=== PATIENT | male | born 1945 | race Two or more races ===

== ENCOUNTER 2021-02-19 09:02 | Inpatient (IN) | payer MEDICARE, OTHER ==
[~2021-02-19] VITALS: Ht 165.1 cm; Wt 53.5 kg
--- NOTE | 2021-02-19 09:02 | NUR ---
PT KERMIT 89 FROM [facility] C/O HEAD LAC S/P GLF. PT IS AAOX3 CYPRIOT SPEAKING ONLY, HOOKED TO MARKET RESEARCH ASSISTANT, KEPT RESTED AND COMFORTABLE. WILL CONTINUE TO MONITOR.
--- NOTE | 2021-02-19 09:21 | NUR ---
SEEN AND EXAMINED BY .
--- NOTE | 2021-02-19 09:37 | NUR ---
PT IS WHEELED TO CT SCAN VIA [facility].
--- NOTE | 2021-02-19 11:03 | NUR ---
MOVE SHEET SUBMITTED AND CALLED FOR TELE BED.
[2021-02-19 11:04] LABS: BASOPHILS # (AUTO) 0.1 K/uL (0.0-0.2); BASOPHILS % (AUTO) 1.3 % (0.0-2.0); EOSINOPHILS % (AUTO) 18.2 % (0.0-6.0); HEMATOCRIT 35 % (39-51); LYMPHOCYTES # (AUTO) 0.5 K/uL (0.8-4.8); LYMPHOCYTES % (AUTO) 8.6 % (20.0-44.0); MEAN CORPUSCULAR HGB CONC 31 g/dl (31.0-36.0); MEAN CORPUSCULAR VOLUME 90 fL (80-96); MONOCYTES # (AUTO) 0.4 K/uL (0.1-1.30); MONOCYTES % (AUTO) 8.4 % (2.0-12.0); NEUTROPHILS # (AUTO) 3.3 K/uL (1.8-8.9); NEUTROPHILS % (AUTO) 63.5 % (43.0-81.0); PLATELET COUNT (AUTO) 173 K/uL (150-450); RED BLOOD CELL COUNT(AUTO) 3.93 MIL/uL (4.5-6.0); WHITE BLOOD COUNT (AUTO) 5.3 K/uL (4.3-11.0)
[2021-02-19] MEDS ORDERED: TDAP [DIPH/PERTUSSIS/TET] 0.5 ML VIAL IM ONE ×2 (11:14→11:30)
[2021-02-19] MEDS ORDERED: HYDR-4077 PO (11:14)
[2021-02-19] MEDS ORDERED: FERR325T23 PO (11:14)
[2021-02-19] MEDS ORDERED: AMIN30LI27 PO (11:14)
[2021-02-19] MEDS ORDERED: MAGN400O6 PO (11:14)
[2021-02-19] MEDS ORDERED: BISA10SU11 RC (11:14)
[2021-02-19] MEDS ORDERED: POLY17PO4 PO (11:14)
[2021-02-19] MEDS ORDERED: ACID1TAB12 PO (11:14)
[2021-02-19] MEDS ORDERED: NUT.237L67 PO (11:14)
[2021-02-19] MEDS ORDERED: HYDR28.32 TP (11:14)
[2021-02-19] MEDS ORDERED: MIRT45TA83 PO (11:14)
[2021-02-19] MEDS ORDERED: LINA5TAB PO (11:14)
[2021-02-19] MEDS ORDERED: INSU100V11 SQ (11:14)
[2021-02-19] MEDS ORDERED: POLY15DR40 EACHEYE (11:14)
[2021-02-19] MEDS ORDERED: FOLI0.8T23 PO (11:14)
[2021-02-19 11:25] LABS: ALANINE AMINOTRANSFERASE 11 U/L (12-78); ALBUMIN 2.7 g/dL (3.4-5.0); ALKALINE PHOSPHATASE 77 U/L (46-116); ASPARTATE AMINOTRANSFERASE 12 U/L (15-37); BILIRUBIN,DIRECT 0.1 mg/dL (0.0-0.2); BILIRUBIN,TOTAL 0.2 mg/dL (0.2-1.0); CALCIUM, SERUM 8.1 mg/dL (8.5-10.1); CARBON DIOXIDE 29 mmol/L (21-32); CHLORIDE 106 mmol/L (98-107); CREATININE 4.3 mg/dL (0.6-1.3); GLUCOSE 138 mg/dL (74-106); LIPASE 120 U/L (73-393); POTASSIUM 3.7 mmol/L (3.5-5.1); SODIUM SERUM 143 mmol/L (136-145); TOTAL PROTEIN, SERUM 7.3 g/dL (6.4-8.2); UREA NITROGEN, BLOOD 54 mg/dL (7-18)
--- NOTE | 2021-02-19 11:43 | NUR ---
COVID SPECIMEN OBTAINED AND SENT TO LAB.
--- NOTE | 2021-02-19 13:03 | NUR ---
YASMINE PT DAUGHTER.
[2021-02-19] MEDS ORDERED: ACETAMINOPHEN 325 MG TABLET PO PRN (14:00)
[2021-02-19] MEDS ORDERED: ONDANSETRON HCL/PF 4 MG/2 ML VIAL IVP PRN (14:00)
--- NOTE | 2021-02-19 18:30 | NUR ---
ROOM GIVEN 116-1
--- NOTE | 2021-02-19 18:34 | NUR ---
CALLED CLAIRE FOR REPORT PER RN SOON GIVE REPORT AFTER SHIFT THEY'RE MOVING PT.
--- NOTE | 2021-02-19 19:32 | NUR ---
ATTEMPTED TO CALL REPORT, NURSE IS WITH PATIENT AT THE MOMENT, WAITING FOR NURSE TO BE AVAILABLE. WILL RECEIVE A CALLBACK.
--- NOTE | 2021-02-19 19:51 | NUR ---
ATTEMPTED TO GIVE REPORT, NURSE IS BUSY AT THE MOMENT. WILL TRY AGAIN.
[2021-02-19 20:44] VITALS: BP 153/74
[2021-02-20] VITALS: BP_SYST 133; BP_SYST 153; BP_DIAS 74; BP_DIAS 77
[2021-02-20 04:00] VITALS: BP 139/79
--- NOTE | 2021-02-20 06:35 | NUR ---
RN notes Admitted a 75 yr old male from ER for unwitness fall. Patient has a 2 samantha in frontal scalp, redness noted. NO bledding or discharge. Vital signs wnl. No distress noted. On room air, tolerating well. No complaint of pain or discomfort. Alert with a little confusion, obeys command. No significant change since admission. Kept clean and dry. Will endorse to next shift for continuity of care.
[2021-02-20 07:32] LABS: BASOPHILS % (AUTO) 0.6 % (0.0-2.0); EOSINOPHILS % (AUTO) 17.7 % (0.0-6.0); HEMATOCRIT 32 % (39-51); HEMOGLOBIN 10.2 g/dL (13.5-17.5); LYMPHOCYTES # (AUTO) 0.8 K/uL (0.8-4.8); LYMPHOCYTES % (AUTO) 12.9 % (20.0-44.0); MEAN CORPUSCULAR HGB CONC 32 g/dl (31.0-36.0); MEAN CORPUSCULAR VOLUME 90 fL (80-96); MONOCYTES # (AUTO) 0.6 K/uL (0.1-1.30); MONOCYTES % (AUTO) 9.5 % (2.0-12.0); NEUTROPHILS # (AUTO) 3.5 K/uL (1.8-8.9); NEUTROPHILS % (AUTO) 59.3 % (43.0-81.0); PLATELET COUNT (AUTO) 172 K/uL (150-450); RED BLOOD CELL COUNT(AUTO) 3.58 MIL/uL (4.5-6.0); WHITE BLOOD COUNT (AUTO) 5.9 K/uL (4.3-11.0)
[2021-02-20 07:44] LABS: CARBON DIOXIDE 28 mmol/L (21-32); CHLORIDE 108 mmol/L (98-107); CREATININE 4.3 mg/dL (0.6-1.3); GLUCOSE 92 mg/dL (74-106); MAGNESIUM 2.9 mg/dL (1.8-2.4); PHOSPHORUS 5.1 mg/dL (2.5-4.9); POTASSIUM 3.7 mmol/L (3.5-5.1); SODIUM SERUM 143 mmol/L (136-145); UREA NITROGEN, BLOOD 63 mg/dL (7-18)
[2021-02-20 07:52] LABS: CALCIUM, SERUM 8.2 mg/dL (8.5-10.1)
[2021-02-20 07:55] LABS: CHOLESTEROL 135 mg/dL (<200); HDL CHOLESTEROL 33 mg/dL (40-60); LDL 82 mg/dL (0-99); TRIGLYCERIDES 103 mg/dL (30-150)
[2021-02-20 08:00] VITALS: BP 138/68
--- NOTE | 2021-02-20 10:01 | NUR ---
VSS, pt calm and cooperative, no s/s distress. HD nurse at bedside and pt undergoing dialysis per physician orders.
[2021-02-20 12:00] VITALS: BP 91/56
[2021-02-20 16:00] VITALS: BP 123/59
--- NOTE | 2021-02-20 19:30 | NUR ---
RN NOTE RECEIVED PATIENT IN BED. A/OX 1-2, CONFUSED. TOLERATING ROOM AIR. RESPIRATIONS ARE EVEN AND UNLABORED. NO S/S SOB NOTED. NO C/O PAIN. TELE MONITOR REMOVED BY PATIENT. PLACED NEW LEADS ON PATIENT AND ONCE OUT OF ROOM WAS INFORMED BY MOLECULAR PHYSICIST THAT PATIENT HAS REMOVED IT. TELE MONITOR READING IS SINUS RHYTHM TRIGEMINY, COUPLETS WITH LARGE PVCS. IN NO APPARENT DISTRESS. IV ACCESS IN RAC#18 AND LEFT HD CATH. BED IS LOW AND LOCKED, HOB ELEVATED IN SEMI FOWLERS, SIDE RIALS UP X3, CALL LIGHT WITHIN REACH. WILL CONTINUE TO MONITOR THROUGHOUT SHIFT.
[2021-02-20 20:00] VITALS: BP 148/68
--- NOTE | 2021-02-20 20:00 | NUR ---
RN NOTE INFORMED [employer] SUPERVISOR DR. HERRON TO REVIEW MED RECON FOR THIS PATIENT.
--- NOTE | 2021-02-20 20:30 | NUR ---
RN NOTE DID NOT TAKE SKIN ASSESSMENT PHOTOS PER PROTOCOL QSUNDAY D/T PATIENT ADMITTED WITHIN 24 HOURS. COMPARED SKIN WITH PHOTO, NO CHANGES.
--- NOTE | 2021-02-20 20:50 | NUR ---
RN NOTE INFORMED DRAPERY HANGER DR. HERRON THAT PATIENT IS CONTINUOUSLY REMOVING TELE BOX. PREVIOUS TELE RHYTHM IS TRIGEMINY AND COUPLET, WITH LARGE PVCS. ONCE APPLIED TELE BOX AND STAFF LEAVES ROOM PATIENT REMOVES IT RIGHT AWAY. MD INFORMED NO NEW ORDERS.
[2021-02-21] VITALS: BP 137/75
[2021-02-21 04:00] VITALS: BP 134/55
--- NOTE | 2021-02-21 07:30 | NUR ---
RN OPENING NOTE Pt is A/O X 1-2, Portuguese speaking with periods of disorientation. No respiratory distress, no SOB. RAC IV site with clean dressing. Telereading sinus rhytm SR trigemeny/couplet large PVC's. Safety precautions implemented, bed locked in lowest position. Call light within reach.
--- NOTE | 2021-02-21 07:38 | NUR ---
RN NOTE ON COVID ISOLATION. RESTING IN BED. A/OX 1-2, CONFUSED. REMAINS TOLERATING ROOM AIR. NO RESP DISTRESS. NO PAIN. MD INFORMED THAT PATIENT CONTINUOUSLY REMOVE TELE MONITOR.NO DISTRESS. IV IN RAC#18 AND LEFT HD CATH. BED REMAINS LOW AND LOCKED, HOB ELEVATED IN SEMI FOWLERS, SIDE RIALS UP X3, CALL LIGHT WITHIN REACH. WILL ENDORSE TO ONCOMING SHIFT.
[2021-02-21 08:00] VITALS: BP 119/49
[2021-02-21] MEDS ORDERED: BISACODYL SUPP (10 MG) 10 MG/SUPP.RECT SUPP.RECT RC PRN (09:30)
[2021-02-21 12:00] VITALS: BP 133/66
[2021-02-21] MEDS ORDERED: FERROUS SULFATE (325 MG) 325 MG/TAB TABLET PO SCH (13:00)
[2021-02-21] MEDS ORDERED: ACIDOPHILUS/BULGARICUS 1 EACH TAB.CHEW PO SCH (13:00)
--- NOTE | 2021-02-21 15:59 | NUR ---
[facility] NOTE PT is A/O X 3, Nepali speaking, no respiratory distress, no SOB. D/C to [place] [facility] gave report to Penny. Spoke with daughter Nette aware of transfer. Pertinent paperworks sent with patient. picked up by two air sealing technician via aure, in stable condition.
[2021-02-21] MEDS ORDERED: NEPRO VAN 237 ML CAN PO SCH (17:00)
[2021-02-21] MEDS ORDERED: MIRTAZAPINE 15 MG TABLET PO SCH (22:00)
[2021-02-22] MEDS ORDERED: VIT B CMPLX 3/FA/VIT C/BIOTIN 1 TAB TABLET PO SCH (09:00)
== END 2021-02-21 16:02 | DRG 604 ==
LOC: ER 09:06 → TELE1 20:33
PROVIDERS: ADMIT Nurse Practitioner Acute Care; ATTEND Nurse Practitioner Acute Care
PROC: 5A1D70Z Performance of Urinary Filtration, Intermittent, Less than 6 Hours Per Day (ICD-10-PCS; principal; 2021-02-20)
DX: S01.01XA Laceration without foreign body of scalp, initial encounter (principal); N18.6 End stage renal disease; I13.2 Hypertensive heart and chronic kidney disease with heart failure and with stage 5 chronic kidney disease, or end stage renal disease; E44.0 Moderate protein-calorie malnutrition; I69.354 Hemiplegia and hemiparesis following cerebral infarction affecting left non-dominant side; J98.11 Atelectasis; I50.32 Chronic diastolic (congestive) heart failure; Z99.2 Dependence on renal dialysis; Z20.822 Contact with and (suspected) exposure to COVID-19; Z86.16 Personal history of COVID-19; Z79.4 Long term (current) use of insulin; Z79.899 Other long term (current) drug therapy; W06.XXXA Fall from bed, initial encounter; Y92.129 Unspecified place in nursing home as the place of occurrence of the external cause; M62.50 Muscle wasting and atrophy, not elsewhere classified, unspecified site; E11.22 Type 2 diabetes mellitus with diabetic chronic kidney disease; I67.2 Cerebral atherosclerosis; I70.0 Atherosclerosis of aorta; D63.1 Anemia in chronic kidney disease; M89.8X9 Other specified disorders of bone, unspecified site; M48.02 Spinal stenosis, cervical region
CPT/HCPCS: 36415; 70450-TC; 71045-TC; 72125-TC; 80048-TC; 80061-TC; 80076-TC; 83690-TC; 83735-TC; 84100-TC; 84484-TC; 85025-TC; 86706; 87081-TC; 87340; 90715; 90935-TC; 93307-TC; 97112-TC; 97116-TC; 97530-TC; A6403; G0378; U0003